=== PATIENT | male | born 1965 | race Caucasian/White ===

== ENCOUNTER → 2018-05-21 13:08 | Outpatient (CLI) | payer BC, SELFPAY | PROVIDERS: PCP Family Medicine; Visit Provider Family Medicine | DX: G47.33 Obstructive sleep apnea (adult) (pediatric) (principal); R06.83 Snoring; G47.10 Hypersomnia, unspecified; I10 Essential (primary) hypertension | CPT/HCPCS: 95806 ==

== ENCOUNTER → 2019-01-28 11:18 | Outpatient (CLI) | payer BC, SELFPAY ==
--- NOTE | 2019-01-28 11:22 | XR_ITS ---
XR chest 2V HISTORY: ITS.REASON: RALES 1/3 WAY UP CHEST LT SIDE ORDERING PHYSICIAN: Kierra Santiago APRN PATIENT AGE: 53 years COMPARISON: None FINDINGS: The heart size is unremarkable. There is increased density along the left hilar region with convex nodular configuration of the left hilum. There is increased density adjacent to the aortic arch on the left as well. Hilar mass or aneurysm is considered. Recommend chest CT with contrast for further evaluation. No lobar consolidation or collapse is evident. No acute bony findings. IMPRESSION: Left-sided hilar and mediastinal prominence which may be due to aortic aneurysm or mass. Suggest CT of the chest with contrast for further evaluation
== END ==
PROVIDERS: PCP Family Medicine; Visit Provider Nurse Practitioner
DX: R09.89 Other specified symptoms and signs involving the circulatory and respiratory systems (principal)
CPT/HCPCS: 71046

== ENCOUNTER → 2019-01-31 10:49 | Outpatient (CLI) | payer BC, SELFPAY ==
--- NOTE | 2019-01-31 10:53 | US_ITS ---
US soft tissue head and neck CLINICAL INDICATION: Palpable mass left supraclavicular region ITS.REASON: LT CERVICAL LYMPHADENOPATHY ORDERING PHYSICIAN: Donato Tenorio MD PATIENT AGE: 53 years Comparison: None FINDINGS: General survey is performed of the neck. There is a lobular area decrease echogenicity in the left supraclavicular region. His measures approximately 4 x 2.3 cm and is consistent with adenopathy. The submandibular glands and parotid glands have an unremarkable appearance. IMPRESSION: Left supraclavicular adenopathy
--- NOTE | 2019-01-31 10:54 | CT_ITS ---
CT chest w con HISTORY: Abnormal breath sounds, abnormal chest x-ray, hilar mass ITS.REASON: ABNORMAL CXR ORDERING PHYSICIAN: Donato Tenorio MD PATIENT AGE: 53 years COMPARISON: 01/28/2019 TECHNIQUE: Axial images obtained following the administration of 75 mL of Optiray 350 . Sagittal, and coronal reformatted images are also generated and reviewed. All CT scans at the facility use one or more dose reduction, viz: automated exposure control, ma/kV adjustment per patient size (including targeted exams where dose is matched to indication, i.e. head), or iterative reconstruction technique. FINDINGS: Measuring 4 x 2.6 cm consistent with adenopathy. Lobular soft tissue mass is present in the anterior mediastinum on the left measuring up to 6.7 cm cephalad to caudad 4.4 cm transverse and 6.6 cm AP consistent with adenopathy. There are 2 nodular densities in the left upper lobe anteriorly which appears separate from the mediastinal mass. In conjunction these measure 3 x 1 cm. There are centrilobular emphysematous changes with evidence of old granulomatous disease. No effusions or infiltrates are evident. No acute bony anomalies. Upper abdominal images show several isodense lesions of the liver. The largest is at the falciform ligament region measuring approximately 15 mm. This could be due to small cysts. The adrenal glands are unremarkable. No acute bony findings are evident. There is decreased attenuation within the left aspect of the T8 vertebral body and may be due to a hemangioma. IMPRESSION: 1. Large left anterior mediastinal mass as described above with an adjacent 3 x 1 cm left upper lobe nodule versus 2 combined nodules 2. Left supraclavicular adenopathy. Lymphoma or metastatic disease is considered. The left upper lobe nodular opacity. Also represent a primary lung neoplasm such as small cell carcinoma with adenopathy to the mediastinum and supraclavicular area. Ultrasound-guided core biopsy/fine-needle aspiration could be performed of the supraclavicular adenopathy if clinically desired. 3. Centrilobular emphysema,. 4. Several isodense lesions of liver which may be due to cysts.
== END ==
PROVIDERS: PCP Family Medicine; Visit Provider Family Medicine
DX: R59.0 Localized enlarged lymph nodes (principal); R93.89 Abnormal findings on diagnostic imaging of other specified body structures
CPT/HCPCS: 71260; 76536; Q9967

== ENCOUNTER 2019-02-08 12:27 | Inpatient (IN) ==
[2019-02-08 13:57] LABS: Albumin Level 1.9 gm/dL (3.4-5.0); Albumin/Globulin Ratio 0.4 (1.1-1.8); Anion Gap 16.2 mEq/L (5-15); Bilirubin,Total 0.6 mg/dL (0.2-1.0); Calcium 8.5 mg/dL (8.5-10.1); Globulin 5.1 gm/dl (1.3-3.2); Potassium 4.2 mmoL/L (3.5-5.1)
[2019-02-08 14:59] LABS: Basophils # 0.1 K/mm3 (0-0.2); Basophils % 0.4 % (0.1-2.0); Eosinophils # 0.2 K/mm3 (0.0-0.4); Eosinophils % 1.2 % (0.1-12.0); Hematocrit 37.7 % (42.0-52.0); Lymphocytes # 2.6 K/mm3 (0.7-4.5); Mean Corpuscular HGB Conc 31.7 g/dL (31.8-35.4); Mean Corpuscular Hemoglobin 26.9 pg (27.0-31.2); Mean Corpuscular Volume 84.9 fl (80-94); Mean Platelet Volume 7.7 fl (7.4-10.4); Monocytes # 0.7 K/mm3 (0.1-1.0); Monocytes % 4.1 % (1.7-9.3); Neutrophils # 12.5 K/mm3 (1.8-7.8); Neutrophils % 78.3 % (37.0-80.0); Platelet Count 461 K/mm3 (142-424); Red Blood Count 4.44 M/mm3 (4.60-6.20); Red Cell Distribution Width 14.8 % (11.5-17.5); White Blood Count 15.9 K/mm3 (4.8-10.8)
--- NOTE | 2019-02-08 15:09 | Pharmacy Consult Notes ---
[facility] Pharmacy VTE Monitoring - Patient Demographics Admission date: 02/08/19 Report Date: 02/08/19 Time: 15:09 Allergies/Adverse Reactions: Patient Allergies No Known Allergies Allergy (Unverified 09/01/17 14:23) Height: 1.85 m Weight: 98.118 kg - VTE Risk Labs: VTE Related Lab Results Hgb 12.0 g/dL (14.1-18.0) L 02/08/19 13:20 Hct 37.7 % (42.0-52.0) L 02/08/19 13:20 Plt Count 461 K/mm3 (142-424) H 02/08/19 13:20 BUN 14 mg/dL (7-18) 02/08/19 13:20 Creatinine 1.14 mg/dL (0.70-1.30) 02/08/19 13:20 Estimated Creat Clear 103 mL/min (50-200) 02/08/19 13:20 VTE Score: 3 VTE Risk Level: Low Risk - Prophylaxis VTE Prophylaxis Ordered?: Yes Types of VTE Prophylaxis: TEDS Knee High Location of Applied Device: Bilateral Lower Extremeties - VTE Diagnosis Confirmed Treatment or plan recommended: Continue Current Treatment
--- NOTE | 2019-02-08 17:26 | Progress Note ---
Internal Medicine - PN: Subj *Date: 02/08/19 *Time: 17:22 Interval history: Patient admitted from the office today with cough, fever and chills, tachycardia and shortness of breath. Exam Vital signs and Labs for Last 24 Hours: Temp Pulse Resp BP Pulse Ox 99.4 F 101 H 18 98/60 L 95 02/08/19 16:00 02/08/19 16:00 02/08/19 16:00 02/08/19 16:00 02/08/19 16:00 Laboratory Results - last 24 hr 02/08/19 13:20: WBC 15.9 H, RBC 4.44 L, Hgb 12.0 L, Hct 37.7 L, MCV 84.9, MCH 26.9 L, MCHC 31.7 L, RDW 14.8, Plt Count 461 H, MPV 7.7, Neut % (Auto) 78.3, Lymph % (Auto) 16.0, [place] % (Auto) 4.1, Eos % (Auto) 1.2, Baso % (Auto) 0.4, Neut # (Auto) 12.5 H, Lymph # (Auto) 2.6, [place] # (Auto) 0.7, Eos # (Auto) 0.2, Baso # (Auto) 0.1 02/08/19 13:20: Sodium 133 L, Potassium 4.2, Chloride 96 L, Carbon Dioxide 25, Anion Gap 16.2 H, BUN 14, Creatinine 1.14, Estimated Creat Clear 103, Estimated GFR 67, Est GFR ( Amer) 81, Glucose 88, Calcium 8.5, Total Bilirubin 0.6, AST 26, ALT 42, Alkaline Phosphatase 88, Total Protein 7.0, Albumin 1.9 L, Globulin 5.1 H, Albumin/Globulin Ratio 0.4 L I & O for Last 24 hours: Intake & Output 02/05/19 02/06/19 02/07/19 02/08/19 23:59 23:59 23:59 23:59 Weight 216 lb 5 oz Radiology Reports for the Last 24 Hours: CXR shows an unchanged mediastinal and left hilar mass and a LLL consolidation - Constitutional no acute distress - *Routine HEENT Exam Head: Present: normocephalic Eye: Present: EOMI ENT: Present: mucous membranes moist - *Routine Neck Exam Present: supple. Absent: lymphadenopathy - Routine Chest/Breast/Axilla Exam Comments: left supraclavicular mass - *Routine Respiratory Exam Present: decreased breath sounds (rare bibasilar crackles) - *Routine Cardiovascular Exam Present: RRR - *Routine Abdominal Exam Present: soft, normoactive bowel sounds. Absent: tenderness - *Routine Extremities Exam Absent: cyanosis, clubbing, edema - *Routine Skin Exam Present: warm. Absent: rash - *Routine Neurological Exam Present: alert, oriented X3 Assessment and Plan (1) LLL pneumonia Current visit: Yes Status: Acute Category: Medical Code(s): J18.1 - Lobar pneumonia, unspecified organism (2) Leukocytosis Current visit: Yes Status: Acute Category: Medical Code(s): D72.829 - Elevated white blood cell count, unspecified (3) HTN (hypertension) Current visit: Yes Status: Acute Category: Medical Code(s): I10 - Essential (primary) hypertension (4) Mediastinal mass Current visit: Yes Status: Acute Category: Medical Code(s): J98.59 - Other diseases of mediastinum, not elsewhere classified (5) Supraclavicular mass Current visit: Yes Status: Acute Category: Medical Code(s): R22.2 - Lo calized swelling, mass and lump, trunk (6) SIRS (systemic inflammatory response syndrome) Current visit: Yes Status: Acute Category: Medical Code(s): R65.10 - Systemic inflammatory response syndrome (SIRS) of non-infectious origin without acute organ dysfunction (7) Chest pain Current visit: Yes Status: Acute Category: Medical Code(s): R07.9 - Chest pain, unspecified - Assessment and plan all Dx Assessment and Plan for all problems:: Pt admitted for further evaluation and management of pneumonia and chest masses.
[2019-02-08 18:28] LABS: Eosinophils % 1 % (0-3); Hypochromasia 1+; Lymphocytes % 16 % (10-50); Monocytes % 3 % (2-9); Neutrophils % 80 % (42-76); Total Cells Counted 100
--- NOTE | 2019-02-08 18:59 | History & Physical Report ---
*Admission Date: 02/08/19 <JalenAmna 02/08/19 19:00> *Chief complaint: Shortness of breath <JalenAmna 02/08/19 19:13> *History of present illness: Mr. Mcgarry is a 53-year-old white male with a history of hypertension and tobacco use disorder who presented to the office of [facility] today with upper respiratory symptoms. He described a sore throat for 6 days with painful swallowing, cough, fever of 101- 102 with chills, left ear pain, shortness of breath with chest tightness and wheezing, headache, dizziness, body aches, and nausea. Patient previously had complaints of shortness of breath and had been on Z-Tenzin and Medrol Dosepak. He had a CT of the chest which revealed a left soft tissue mass in the anterior mediastinum and left upper lobe nodule as well as left supra clavicular adenopathy. He was scheduled for a biopsy of the mass. With worsening of his symptoms he presented to the office. He was evaluated by Dr. Villasenor. He was felt to be dehydrated. He continued with a fever. Blood pressure was low as well as a heart rate of 125. CBC revealed leukocytosis. He was thus admitted for further evaluation and treatment. At the time of this exam patient is lying comfortably in the bed and has been chilling. Chest x-ray revealed a pneumonia and a lung mass. He will have the biopsy in the morning. <Amna Rao 02/08/19 19:13> [facility] History Medical History: Reports:: Hypertension Denies:: Cancer, Diabetes Mellitus Type 1, Diabetes Mellitus Type 2, MRSA <Amna Rao 02/08/19 19:00> *Have you ever received a pneumonia vaccine?: No <Amna Rao 02/08/19 19:00> *Have you received a flu vaccine this season?: No <Amna Rao 02/08/19 19:00> Amputation: No <Amna Rao 02/08/19 19:00> Fractures: No <Amna Rao 02/08/19 19:00> Comment: Left shoulder dislocation with repair <Amna Rao 02/08/19 19:00> - *Social History Educational Level: Completed High School <Amna Roa 02/08/19 19:00> Smoking Status: Current every day smoker <Amna Rao 02/08/19 19:00> Tobacco Type: cigarettes <Amna Rao 02/08/19 19:00> # Packs/Day (cigarettes): 1 <Amna Rao 02/08/19 19:00> Alcohol Intake: never <Amna Rao 02/08/19 19:00> *Occupational Status:: disabled <JalenAmna 02/08/19 19:00> Housing: house <Amna Rao 02/08/19 19:00> Household Members: spouse <Amna Rao 02/08/19 19:00> *Travel in the last 8 weeks: None <Amna Roa 02/08/19 19:00> - Psychiatric History Expresses thoughts of harming self/others: None <Amna Rao 02/08/19 19:00> Suicide Plan Description: No Plan <Amna Rao 02/08/19 19:00> Family Hx:: Cancer, Diabetes, Hypertension <Amna Rao 02/08/19 19:00> Review of Systems - Constitutional Reports body ache(s), Reports chills, Reports excessive sweating, Reports fever(s), Reports headache(s), Reports weakness <RaoAmna 02/08/19 19:13> - ENT Reports dizziness, Reports dry mouth, Reports difficulty swallowing, Reports ear pain, Reports facial pain, Reports headache(s), Reports sore throat, Reports dizziness <RaoAmna 02/08/19 19:13> - *Cardiovascular Reports chest pain, Reports excessive sweating, Reports shortness of breath, Denies generalized swelling, Denies irregular heart rhythm, Denies leg swelling <RaoAmna 02/08/19 19:13> - *Respiratory Reports chest congestion, Reports cough, Reports shortness of breath, Reports shortness of breath with activity, Denies excessive phlegm production, Denies coughing up blood <Rao,Amna 02/08/19 19:13> - *Gastrointestinal Reports nausea, Denies abdominal pain, Denies change in bowel habits, Denies heartburn, Denies vomiting blood, Denies black, tarry stools, Denies vomiting <Amna Rao - 02/08/19 19:13> - *Genitourinary Denies difficulty urinating <Amna Rao 02/08/19 19:13> - *Musculoskeletal Reports joint pain, Reports body aches <Amna Rao Marti 02/08/19 19:13> - *Neurologic Reports dizziness, Reports headache(s), Reports dizziness, Reports weakness, Denies seizure-like activity, Denies seizure-like activity <Amna Rao 02/08/19 19:13> Meds Home Medications Medication Instructions Recorded Confirmed Type Losartan Potassium 25 mg PO DAILY 02/08/19 02/08/19 History <Juan Villasenor 02/09/19 08:18> Allergies Allergy/AdvReac Type Severity Reaction Status Date / Time No Known Allergies Allergy Unverified 09/01/17 14:23 <Juan Villasenor Marti 02/09/19 08:18> Exam Vital signs and Labs for Last 24 Hours: Temp Pulse Resp BP Pulse Ox 99.3 F 88 18 97/67 L 94 L 02/09/19 07:39 02/09/19 07:39 02/09/19 07:39 02/09/19 07:39 02/09/19 07:39 Laboratory Results - last 24 hr 02/08/19 13:20: WBC 15.9 H, RBC 4.44 L, Hgb 12.0 L, Hct 37.7 L, MCV 84.9, MCH 26.9 L, MCHC 31.7 L, RDW 14.8, Plt Count 461 H, MPV 7.7, Neut % (Auto) 78.3, Lymph % (Auto) 16.0, [place] % (Auto) 4.1, Eos % (Auto) 1.2, Baso % (Auto) 0.4, Neut # (Auto) 12.5 H, Lymph # (Auto) 2.6, [place] # (Auto) 0.7, Eos # (Auto) 0.2, Baso # (Auto) 0.1, Total Counted 100, Neutrophils % (Manual) 80 H, Lymphocytes % (Manual) 16, Monocytes % (Manual) 3, Eosinophils % (Manual) 1, Platelet Estimate Slight increase, Hypochromasia 1+ 02/08/19 13:20: Sodium 133 L, Potassium 4.2, Chloride 96 L, Carbon Dioxide 25, Anion Gap 16.2 H, BUN 14, Creatinine 1.14, Estimated Creat Clear 103, Estimated GFR 67, Est GFR ( Amer) 81, Glucose 88, Calcium 8.5, Total Bilirubin 0.6, AST 26, ALT 42, Alkaline Phosphatase 88, Total Protein 7.0, Albumin 1.9 L, Globulin 5.1 H, Albumin/Globulin Ratio 0.4 L <Juan Villasenor - 02/09/19 08:18> Temp Pulse Resp BP Pulse Ox 99.4 F 101 H 18 98/60 L 95 02/08/19 16:00 02/08/19 16:00 02/08/19 16:00 02/08/19 16:00 02/08/19 16:00 Laboratory Results - last 24 hr 02/08/19 13:20: WBC 15.9 H, RBC 4.44 L, Hgb 12.0 L, Hct 37.7 L, MCV 84.9, MCH 26.9 L, MCHC 31.7 L, RDW 14.8, Plt Count 461 H, MPV 7.7, Neut % (Auto) 78.3, Lymph % (Auto) 16.0, [place] % (Auto) 4.1, Eos % (Auto) 1.2, Baso % (Auto) 0.4, Neut # (Auto) 12.5 H, Lymph # (Auto) 2.6, [place] # (Auto) 0.7, Eos # (Auto) 0.2, Baso # (Auto) 0.1, Total Counted 100, Neutrophils % (Manual) 80 H, Lymphocytes % (Manual) 16, Monocytes % (Manual) 3, Eosinophils % (Manual) 1, Platelet Estimate Slight increase, Hypochromasia 1+ 02/08/19 13:20: Sodium 133 L, Potassium 4.2, Chloride 96 L, Carbon Dioxide 25, Anion Gap 16.2 H, BUN 14, Creatinine 1.14, Estimated Creat Clear 103, Estimated GFR 67, Est GFR ( Amer) 81, Glucose 88, Calcium 8.5, Total Bilirubin 0.6, AST 26, ALT 42, Alkaline Phosphatase 88, Total Protein 7.0, Albumin 1.9 L, Globulin 5.1 H, Albumin/Globulin Ratio 0.4 L <Amna Rao 02/08/19 19:00> I & O for Last 24 hours: Intake & Output 02/06/19 02/07/19 02/08/19 02/09/19 23:59 23:59 23:59 23:59 Intake Total 1738 / 1738 2716 / 2716 Balance 1738 / 1738 2716 / 2716 Weight 216 lb 5 oz 216 lb 3 oz <Juan Villasenor - 02/09/19 08:18> Intake & Output 02/06/19 02/07/19 02/08/19 02/09/19 11:59 11:59 11:59 11:59 Intake Total 1738 / 1738 Balance 1738 / 1738 Weight 216 lb 5 oz <Amna Rao 02/08/19 19:00> Radiology Reports for the Last 24 Hours: 02/08/2019 chest x-ray IMPRESSION: No change in the mediastinal and left hilar mass with chronic interstitial changes. New opacity overlies the left lower lung zone could be due to an area of atelectasis <Amna Rao 02/08/19 19:13> - Constitutional no acute distress <Amna Rao 02/08/19 19:13> Comments: Awakened from sleep for exam <Amna Rao 02/08/19 19:13> - *Routine HEENT Exam Head: Present: normocephalic, atraumatic <Amna Rao 02/08/19 19:13> Eye: Present: PERRL. Absent: conjunctival icterus, scleral injection, conjunctivae pink <Amna Rao 02/08/19 19:13> ENT: Present: mucous membranes moist, oropharynx clear <Amna Rao 02/08/19 19:13> - *Routine Neck Exam Present: lymphadenopathy <Amna Rao 02/08/19 19:13> Comments: Left supraventricular adenopathy <Amna Rao 02/08/19 19:13> - *Routine Respiratory Exam Comments: Few crackles on the right <Amna Rao 02/08/19 19:13> - *Routine Cardiovascular Exam Present: RRR <Amna Rao 02/08/19 19:13> - *Routine Abdominal Exam Present: soft, normoactive bowel sounds. Absent: tenderness, distended <Amna Rao - 02/08/19 19:13> - *Routine Extremities Exam Present: calf tenderness (Bilaterally). Absent: edema <Amna Rao - 02/08/19 19:13> - *Routine Neurological Exam Present: alert, oriented X3 <Amna Rao - 02/08/19 19:13> Assessment and Plan (1) LLL pneumonia Current visit: Yes Status: Acute Category: Medical Code(s): J18.1 - Lobar pneumonia, unspecified organism (2) Leukocytosis Current visit: Yes Status: Acute Category: Medical Code(s): D72.829 - Elevated white blood cell count, unspecified (3) HTN (hypertension) Current visit: Yes Status: Acute Category: Medical Code(s): I10 - Essential (primary) hypertension (4) Mediastinal mass Current visit: Yes Status: Acute Category: Medical Code(s): J98.59 - Other diseases of mediastinum, not elsewhere classified (5) Supraclavicular mass Current visit: Yes Status: Acute Category: Medical Code(s): R22.2 - Localized swelling, mass and lump, trunk (6) SIRS (systemic inflammatory response syndrome) Current visit: Yes Status: Acute Category: Medical Code(s): R65.10 - Systemic inflammatory response syndrome (SIRS) of non-infectious origin without acute organ dysfunction (7) Chest pain Current visit: Yes Status: Acute Category: Medical Code(s): R07.9 - Chest pain, unspecified <Juan Villasenor - 02/09/19 08:18> (1) LLL pneumonia Current visit: Yes Status: Acute Category: Medical Code(s): J18.1 - Lobar pneumonia, unspecified organism (2) Leukocytosis Current visit: Yes Status: Acute Category: Medical Code(s): D72.829 - Elevated white blood cell count, unspecified (3) HTN (hypertension) Current visit: Yes Status: Acute Category: Medical Code(s): I10 - Essential (primary) hypertension (4) Mediastinal mass Current visit: Yes Status: Acute Category: Medical Code(s): J98.59 - Other diseases of mediastinum, not elsewhere classified (5) Supraclavicular mass Current visit: Yes Status: Acute Category: Medical Code(s): R22.2 - Localized swelling, mass and lump, trunk (6) SIRS (systemic inflammatory response syndrome) Current visit: Yes Status: Acute Category: Medical Code(s): R65.10 - Systemic inflammatory response syndrome (SIRS) of non-infectious origin without acute organ dysfunction (7) Chest pain Current visit: Yes Status: Acute Category: Medical Code(s): R07.9 - Chest pain, unspecified <Amna Rao - 02/08/19 19:13> - Assessment and plan all Dx Assessment and Plan for all problems:: Saw patient twice on day of admission, agree with above note. <Juan Villasenor - 02/09/19 08:18> Patient has been admitted to the acute care for further evaluation and treatment of chest mass and pneumonia. He has been started on antibiotics and IV fluids. <Amna Rao - 02/08/19 19:14>
--- NOTE | 2019-02-09 08:25 | Progress Note ---
<Amna Rao - Last Filed: 02/09/19 08:22> Internal Medicine - PN: Subj *Date: 02/09/19 *Time: 08:22 Interval history: Patient slept at intervals. He states he had a fever several times associated with chills and diaphoresis. Continues with a nonproductive cough and shortness of breath. Has had the upper chest pain for which she has the pain medicine. He has had no nausea and was able to retain clear liquids this morning. He is voiding without difficulty. He states that he feels the same as he did yesterday before the bolus of fluids. Exam Vital signs and Labs for Last 24 Hours: Temp Pulse Resp BP Pulse Ox 99.3 F 88 18 97/67 L 94 L 02/09/19 07:39 02/09/19 07:39 02/09/19 07:39 02/09/19 07:39 02/09/19 07:39 Laboratory Results - last 24 hr 02/08/19 13:20: WBC 15.9 H, RBC 4.44 L, Hgb 12.0 L, Hct 37.7 L, MCV 84.9, MCH 26.9 L, MCHC 31.7 L, RDW 14.8, Plt Count 461 H, MPV 7.7, Neut % (Auto) 78.3, Lymph % (Auto) 16.0, [place] % (Auto) 4.1, Eos % (Auto) 1.2, Baso % (Auto) 0.4, Neut # (Auto) 12.5 H, Lymph # (Auto) 2.6, [place] # (Auto) 0.7, Eos # (Auto) 0.2, Baso # (Auto) 0.1, Total Counted 100, Neutrophils % (Manual) 80 H, Lymphocytes % (Manual) 16, Monocytes % (Manual) 3, Eosinophils % (Manual) 1, Platelet Estimate Slight increase, Hypochromasia 1+ 02/08/19 13:20: Sodium 133 L, Potassium 4.2, Chloride 96 L, Carbon Dioxide 25, Anion Gap 16.2 H, BUN 14, Creatinine 1.14, Estimated Creat Clear 103, Estimated GFR 67, Est GFR ( Amer) 81, Glucose 88, Calcium 8.5, Total Bilirubin 0.6, AST 26, ALT 42, Alkaline Phosphatase 88, Total Protein 7.0, Albumin 1.9 L, Globulin 5.1 H, Albumin/Globulin Ratio 0.4 L I & O for Last 24 hours: Intake & Output 02/06/19 02/07/19 02/08/19 02/09/19 11:59 11:59 11:59 11:59 Intake Total 4454 / 4454 Balance 4454 / 4454 Weight 216 lb 3 oz - Constitutional no acute distress Comments: Awake and alert taking clear liquid diet - *Routine Respiratory Exam Comments: Crackles heard in the right base with scattered crackles on the left. - *Routine Cardiovascular Exam Present: RRR - *Routine Abdominal Exam Present: soft, normoactive bowel sounds. Absent: tenderness - *Routine Extremities Exam Absent: edema - *Routine Neurological Exam Present: alert, oriented X3 Assessment and Plan (1) LLL pneumonia Current visit: Yes Status: Acute Category: Medical Code(s): J18.1 - Lobar pneumonia, unspecified organism (2) Leukocytosis Current visit: Yes Status: Acute Category: Medical Code(s): D72.829 - Elevated white blood cell count, unspecified (3) HTN (hypertension) Current visit: Yes Status: Acute Category: Medical Code(s): I10 - Essential (primary) hypertension (4) Mediastinal mass Current visit: Yes Status: Acute Category: Medical Code(s): J98.59 - Other diseases of mediastinum, not elsewhere classified (5) Supraclavicular mass Current visit: Yes Status: Acute Category: Medical Code(s): R22.2 - Localized swelling, mass and lump, trunk (6) SIRS (systemic inflammatory response syndrome) Current visit: Yes Status: Acute Category: Medical Code(s): R65.10 - Systemic inflammatory response syndrome (SIRS) of non-infectious origin without acute organ dysfunction (7) Chest pain Current visit: Yes Status: Acute Category: Medical Code(s): R07.9 - Chest pain, unspecified - Assessment and plan all Dx Assessment and Plan for all problems:: Patient states he is having a biopsy at 11:00 of the mass in the supra ventricular area. Continue with fever and pain management, IV fluids and antibiotics. <Juan Villasenor - Last Filed: 02/09/19 09:14> Internal Medicine - PN: Subj *Date: 02/09/19 *Time: 09:14 Exam Vital signs and Labs for Last 24 Hours: Temp Pulse Resp BP Pulse Ox 99.3 F 88 18 97/67 L 94 L 02/09/19 07:39 02/09/19 07:39 02/09/19 07:39 02/09/19 07:39 02/09/19 07:39 Laboratory Results - last 24 hr 02/08/19 13:20: WBC 15.9 H, RBC 4.44 L, Hgb 12.0 L, Hct 37.7 L, MCV 84.9, MCH 26.9 L, MCHC 31.7 L, RDW 14.8, Plt Count 461 H, MPV 7.7, Neut % (Auto) 78.3, Lymph % (Auto) 16.0, [place] % (Auto) 4.1, Eos % (Auto) 1.2, Baso % (Auto) 0.4, Neut # (Auto) 12.5 H, Lymph # (Auto) 2.6, [place] # (Auto) 0.7, Eos # (Auto) 0.2, Baso # (Auto) 0.1, Total Counted 100, Neutrophils % (Manual) 80 H, Lymphocytes % (Manual) 16, Monocytes % (Manual) 3, Eosinophils % (Manual) 1, Platelet Estimate Slight increase, Hypochromasia 1+ 02/08/19 13:20: Sodium 133 L, Potassium 4.2, Chloride 96 L, Carbon Dioxide 25, Anion Gap 16.2 H, BUN 14, Creatinine 1.14, Estimated Creat Clear 103, Estimated GFR 67, Est GFR ( Amer) 81, Glucose 88, Calcium 8.5, Total Bilirubin 0.6, AST 26, ALT 42, Alkaline Phosphatase 88, Total Protein 7.0, Albumin 1.9 L, Globulin 5.1 H, Albumin/Globulin Ratio 0.4 L I & O for Last 24 hours: Intake & Output 02/06/19 02/07/19 02/08/19 02/09/19 23:59 23:59 23:59 23:59 Intake Total 5593 / 1730 5876 / 1 Balance 1737 / 1732715 / 2715 Weight 216 lb 5 oz 216 lb 3 oz Assessment and Plan (1) LLL pneumonia Current visit: Yes Status: Acute Category: Medical Code(s): J18.1 - Lobar pneumonia, unspecified organism (2) Leukocytosis Current visit: Yes Status: Acute Category: Medical Code(s): D72.829 - Elevated white blood cell count, unspecified (3) HTN (hypertension) Current visit: Yes Status: Acute Category: Medical Code(s): I10 - Essential (primary) hypertension (4) Mediastinal mass Current visit: Yes Status: Acute Category: Medical Code(s): J98.59 - Other diseases of mediastinum, not elsewhere classified (5) Supraclavicular mass Current visit: Yes Status: Acute Category: Medical Code(s): R22.2 - Localized swelling, mass and lump, trunk (6) SIRS (systemic inflammatory response syndrome) Current visit: Yes Status: Acute Category: Medical Code(s): R65.10 - Systemic inflammatory response syndrome (SIRS) of non-infectious origin without acute organ dysfunction (7) Chest pain Current visit: Yes Status: Acute Category: Medical Code(s): R07.9 - Chest pain, unspecified - Assessment and plan all Dx Assessment and Plan for all problems:: Saw patient, agree with above note.
[2019-02-10 07:09] LABS: Basophils % 0.4 % (0.1-2.0); Eosinophils # 0.5 K/mm3 (0.0-0.4); Eosinophils % 4.8 % (0.1-12.0); Hemoglobin 9.6 g/dL (14.1-18.0); Lymphocytes # 1.8 K/mm3 (0.7-4.5); Lymphocytes % 16.1 % (10-50); Mean Corpuscular Hemoglobin 26.3 pg (27.0-31.2); Mean Corpuscular Volume 82.2 fl (80-94); Mean Platelet Volume 6.4 fl (7.4-10.4); Monocytes # 0.5 K/mm3 (0.1-1.0); Monocytes % 4.9 % (1.7-9.3); Neutrophils # 8.1 K/mm3 (1.8-7.8); Neutrophils % 73.8 % (37.0-80.0); Platelet Count 431 K/mm3 (142-424); Red Blood Count 3.65 M/mm3 (4.60-6.20); Red Cell Distribution Width 14.2 % (11.5-17.5)
[2019-02-10 07:28] LABS: Calcium 7.9 mg/dL (8.5-10.1)
--- NOTE | 2019-02-10 08:28 | Progress Note ---
<Nieves Damon - Last Filed: 02/10/19 08:25> Internal Medicine - PN: Subj *Date: 02/10/19 *Time: 08:25 Interval history: Patient states he is feeling a little bit better this morning. His sats have been stable on room air. He states he has pain across his back but but denies any other pain. He states he slept off and on throughout the night and was able to eat breakfast this morning. He is still coughing but it is not productive. He has less shortness of breath at rest but still has some dyspnea with exertion. He is still having chills and ran a fever last night. Exam Vital signs and Labs for Last 24 Hours: Temp Pulse Resp BP Pulse Ox 98.4 F 107 H 18 116/67 95 02/10/19 08:00 02/10/19 08:00 02/10/19 08:00 02/10/19 08:00 02/10/19 08:00 Laboratory Results - last 24 hr 02/10/19 06:31: WBC 11.0 H D, RBC 3.65 L, Hgb 9.6 L, Hct 30.0 L, MCV 82.2, MCH 26.3 L, MCHC 32.0, RDW 14.2, Plt Count 431 H, MPV 6.4 L, Neut % (Auto) 73.8, Lymph % (Auto) 16.1, [place] % (Auto) 4.9, Eos % (Auto) 4.8, Baso % (Auto) 0.4, Neut # (Auto) 8.1 H, Lymph # (Auto) 1.8, [place] # (Auto) 0.5, Eos # (Auto) 0.5 H, Baso # (Auto) 0.0 02/10/19 06:31: Sodium 133 L, Potassium 4.0, Chloride 100, Carbon Dioxide 24, Anion Gap 13.0, BUN 9 D, Creatinine 0.90 D, Estimated Creat Clear 127, Estimated GFR 88, Est GFR ( Amer) 106 D, Glucose 94, Calcium 7.9 L I & O for Last 24 hours: Intake & Output 02/07/19 02/08/19 02/09/19 02/10/19 11:59 11:59 11:59 11:59 Intake Total 4454 / 4454 2837 / 2837 Balance 4454 / 4454 2837 / 2837 Weight 216 lb 3 oz 211 lb 5 oz - Constitutional no acute distress - *Routine Respiratory Exam Present: rales (faint bibasilar rales, otherwise CTA) - *Routine Cardiovascular Exam Present: RRR - *Routine Abdominal Exam Present: soft, normoactive bowel sounds. Absent: tenderness - *Routine Extremities Exam Absent: cyanosis, clubbing, edema Assessment and Plan (1) LLL pneumonia Current visit: Yes Status: Acute Category: Medical Code(s): J18.1 - Lobar pneumonia, unspecified organism (2) Leukocytosis Current visit: Yes Status: Acute Category: Medical Code(s): D72.829 - Elevated white blood cell count, unspecified (3) HTN (hypertension) Current visit: Yes Status: Acute Category: Medical Code(s): I10 - Essential (primary) hypertension (4) Mediastinal mass Current visit: Yes Status: Acute Category: Medical Code(s): J98.59 - Other diseases of mediastinum, not elsewhere classified (5) Supraclavicular mass Current visit: Yes Status: Acute Category: Medical Code(s): R22.2 - Localized swelling, mass and lump, trunk (6) SIRS (systemic inflammatory response syndrome) Current visit: Yes Status: Acute Category: Medical Code(s): R65.10 - Systemic inflammatory response syndrome (SIRS) of non-infectious origin without acute organ dysfunction (7) Chest pain Current visit: Yes Status: Acute Category: Medical Code(s): R07.9 - Chest pain, unspecified (8) Anemia Current visit: Yes Status: Acute Category: Medical Code(s): D64.9 - Anemia, unspecified - Assessment and plan all Dx Assessment and Plan for all problems:: We will continue current care and await pathology report. We will get another chest x-ray today and continue to monitor his H&H as it is decreasing. <Juan Villasenor - Last Filed: 02/10/19 08:31> Internal Medicine - PN: Subj *Date: 02/10/19 *Time: 08:30 Exam Vital signs and Labs for Last 24 Hours: Temp Pulse Resp BP Pulse Ox 98.4 F 107 H 18 116/67 95 02/10/19 08:00 02/10/19 08:00 02/10/19 08:00 02/10/19 08:00 02/10/19 08:00 Laboratory Results - last 24 hr 02/10/19 06:31: WBC 11.0 H D, RBC 3.65 L, Hgb 9.6 L, Hct 30.0 L, MCV 82.2, MCH 26.3 L, MCHC 32.0, RDW 14.2, Plt Count 431 H, MPV 6.4 L, Neut % (Auto) 73.8, Lymph % (Auto) 16.1, [place] % (Auto) 4.9, Eos % (Auto) 4.8, Baso % (Auto) 0.4, Neut # (Auto) 8.1 H, Lymph # (Auto) 1.8, [place] # (Auto) 0.5, Eos # (Auto) 0.5 H, Baso # (Auto) 0.0 02/10/19 06:31: Sodium 133 L, Potassium 4.0, Chloride 100, Carbon Dioxide 24, Anion Gap 13.0, BUN 9 D, Creatinine 0.90 D, Estimated Creat Clear 127, Estimated GFR 88, Est GFR ( Amer) 106 D, Glucose 94, Calcium 7.9 L Vital Signs - 24 hr 02/09/19 15:14 02/09/19 15:31 02/09/19 15:53 Temperature 101.5 F H Pulse Rate [Right Brachial] 88 Pulse Rate [Right Radial] 107 H Respiratory Rate 18 18 16 Blood Pressure [Right Arm] 106/66 L 02 Sat by Pulse Oximetry 94 L 02/09/19 20:02 02/09/19 23:57 02/10/19 04:00 Temperature 99.3 F 102.3 F H 99.2 F Pulse Rate [Right Brachial] Pulse Rate [Right Radial] 100 H 103 H 95 H Respiratory Rate 18 18 16 Blood Pressure [Right Arm] 105/59 L 110/65 106/71 L 02 Sat by Pulse Oximetry 97 96 96 02/10/19 08:00 Temperature 98.4 F Pulse Rate [Right Brachial] Pulse Rate [Right Radial] 107 H Respiratory Rate 18 Blood Pressure [Right Arm] 116/67 02 Sat by Pulse Oximetry 95 I & O for Last 24 hours: Intake & Output 02/07/19 02/08/19 02/09/19 02/10/19 23:59 23:59 23:59 23:59 Intake Total 1738 / 1738 4433 / 4433 1120 / 1120 Balance 1738 / 1738 4433 / 4433 1120 / 1120 Weight 216 lb 5 oz 216 lb 3 oz 211 lb 5 oz Assessment and Plan (1) LLL pneumonia Current visit: Yes Status: Acute Category: Medical Code(s): J18.1 - Lobar pneumonia, unspecified organism (2) Leukocytosis Current visit: Yes Status: Acute Category: Medical Code(s): D72.829 - Elevated white blood cell count, unspecified (3) HTN (hypertension) Current visit: Yes Status: Acute Category: Medical Code(s): I10 - Essential (primary) hypertension (4) Mediastinal mass Current visit: Yes Status: Acute Category: Medical Code(s): J98.59 - Other diseases of mediastinum, not elsewhere classified (5) Supraclavicular mass Current visit: Yes Status: Acute Category: Medical Code(s): R22.2 - Localized swelling, mass and lump, trunk (6) SIRS (systemic inflammatory response syndrome) Current visit: Yes Status: Acute Category: Medical Code(s): R65.10 - Systemic inflammatory response syndrome (SIRS) of non-infectious origin without acute organ dysfunction (7) Chest pain Current visit: Yes Status: Acute Category: Medical Code(s): R07.9 - Chest pain, unspecified (8) Anemia Current visit: Yes Status: Acute Category: Medical Code(s): D64.9 - Anemia, unspecified - Assessment and plan all Dx Assessment and Plan for all problems:: Saw patient, he was febrile overnight, recheck CXR, await cultures and pathology report.
[2019-02-11 07:24] LABS: Basophils % 0.3 % (0.1-2.0); Eosinophils # 0.7 K/mm3 (0.0-0.4); Eosinophils % 6.8 % (0.1-12.0); Hematocrit 30.4 % (42.0-52.0); Hemoglobin 9.7 g/dL (14.1-18.0); Lymphocytes # 1.7 K/mm3 (0.7-4.5); Lymphocytes % 17.4 % (10-50); Mean Corpuscular Hemoglobin 26.5 pg (27.0-31.2); Mean Corpuscular Volume 82.6 fl (80-94); Mean Platelet Volume 6.3 fl (7.4-10.4); Monocytes # 0.4 K/mm3 (0.1-1.0); Monocytes % 3.5 % (1.7-9.3); Neutrophils # 7.1 K/mm3 (1.8-7.8); Neutrophils % 71.8 % (37.0-80.0); Red Blood Count 3.68 M/mm3 (4.60-6.20); Red Cell Distribution Width 14.3 % (11.5-17.5); White Blood Count 9.9 K/mm3 (4.8-10.8)
[2019-02-11 07:31] LABS: Anion Gap 12.5 mEq/L (5-15); Potassium 4.5 mmoL/L (3.5-5.1)
[2019-02-11 08:16] LABS: Platelet Count 517 K/mm3 (142-424)
--- NOTE | 2019-02-11 08:25 | Progress Note ---
<Nieves Damon - Last Filed: 02/11/19 08:22> Internal Medicine - PN: Subj *Date: 02/11/19 *Time: 08:22 Interval history: Patient states he is feeling better this morning. He has had only a low-grade fever at around 11 PM yesterday. He slept a little bit better last night and was able to eat this morning. He still has some pain across his back and some minimal shortness of breath. Exam Vital signs and Labs for Last 24 Hours: Temp Pulse Resp BP Pulse Ox 98.9 F 100 H 18 96/70 L 97 02/11/19 04:00 02/11/19 04:00 02/11/19 04:00 02/11/19 04:00 02/11/19 04:00 Laboratory Results - last 24 hr 02/11/19 06:55: WBC 9.9, RBC 3.68 L, Hgb 9.7 L, Hct 30.4 L, MCV 82.6, MCH 26.5 L , MCHC 32.0, RDW 14.3, Plt Count 517 H, MPV 6.3 L, Neut % (Auto) 71.8, Lymph % (Auto) 17.4, [place] % (Auto) 3.5, Eos % (Auto) 6.8, Baso % (Auto) 0.3, Neut # (Auto) 7.1, Lymph # (Auto) 1.7, [place] # (Auto) 0.4, Eos # (Auto) 0.7 H, Baso # (Auto) 0.0 02/11/19 06:55: Sodium 136, Potassium 4.5, Chloride 102, Carbon Dioxide 26, Anion Gap 12.5, BUN 9, Creatinine 0.82, Estimated Creat Clear 142, Estimated GFR 98, Est GFR ( Amer) 118, Glucose 88, Calcium 8.0 L I & O for Last 24 hours: Intake & Output 02/08/19 02/09/19 02/10/19 02/11/19 11:59 11:59 11:59 11:59 Intake Total 4454 / 4454 2837 / 2837 720 / 720 Balance 4454 / 4454 2837 / 2837 720 / 720 Weight 216 lb 3 oz 211 lb 5 oz 215 lb Microbiology Reports for the Last 24 Hours: Microbiology 02/08/19 13:20 Blood - Not Otherwise Specified Blood Culture - Preliminary NO GROWTH AFTER 48 HOURS 02/08/19 13:20 Blood - Not Otherwise Specified Blood Culture - Preliminary NO GROWTH AFTER 48 HOURS Radiology Reports for the Last 24 Hours: CXR IMPRESSION: 1. No change left hilar mass. 2. Patchy density left lower lobe consistent with atelectasis or infiltrate - Constitutional no acute distress - *Routine Respiratory Exam Present: rales (faint in the left base). Absent: wheezes - *Routine Cardiovascular Exam Present: RRR - *Routine Abdominal Exam Present: soft, normoactive bowel sounds. Absent: tenderness - *Routine Extremities Exam Absent: cyanosis, clubbing, edema Assessment and Plan (1) LLL pneumonia Current visit: Yes Status: Acute Category: Medical Code(s): J18.1 - Lobar pneumonia, unspecified organism (2) Leukocytosis Current visit: Yes Status: Acute Category: Medical Code(s): D72.829 - Elevated white blood cell count, unspecified (3) HTN (hypertension) Current visit: Yes Status: Acute Category: Medical Code(s): I10 - Essential (primary) hypertension (4) Mediastinal mass Current visit: Yes Status: Acute Category: Medical Code(s): J98.59 - Other diseases of mediastinum, not elsewhere classified (5) Supraclavicular mass Current visit: Yes Status: Acute Category: Medical Code(s): R22.2 - Localized swelling, mass and lump, trunk (6) SIRS (systemic inflammatory response syndrome) Current visit: Yes Status: Acute Category: Medical Code(s): R65.10 - Systemic inflammatory response syndrome (SIRS) of non-infectious origin without acute organ dysfunction (7) Chest pain Current visit: Yes Status: Acute Category: Medical Code(s): R07.9 - Chest pain, unspecified (8) Anemia Current visit: Yes Status: Acute Category: Medical Code(s): D64.9 - Anem ia, unspecified - Assessment and plan all Dx Assessment and Plan for all problems:: White blood cell count has normalized. H&H is stable but still slightly low. Chest x-ray shows left lower lobe atelectasis versus infiltrate. Still awaiting biopsy results. <Juan Villasenor - Last Filed: 02/11/19 09:03> Internal Medicine - PN: Subj *Date: 02/11/19 *Time: 09:01 Exam Vital signs and Labs for Last 24 Hours: Temp Pulse Resp BP Pulse Ox 99.5 F 103 H 18 120/77 95 02/11/19 08:00 02/11/19 08:00 02/11/19 08:00 02/11/19 08:00 02/11/19 08:00 Laboratory Results - last 24 hr 02/11/19 06:55: WBC 9.9, RBC 3.68 L, Hgb 9.7 L, Hct 30.4 L, MCV 82.6, MCH 26.5 L , MCHC 32.0, RDW 14.3, Plt Count 517 H, MPV 6.3 L, Neut % (Auto) 71.8, Lymph % (Auto) 17.4, [place] % (Auto) 3.5, Eos % (Auto) 6.8, Baso % (Auto) 0.3, Neut # (Auto) 7.1, Lymph # (Auto) 1.7, [place] # (Auto) 0.4, Eos # (Auto) 0.7 H, Baso # (Auto) 0.0 02/11/19 06:55: Sodium 136, Potassium 4.5, Chloride 102, Carbon Dioxide 26, A nion Gap 12.5, BUN 9, Creatinine 0.82, Estimated Creat Clear 142, Estimated GFR 98, Est GFR ( Amer) 118, Glucose 88, Calcium 8.0 L I & O for Last 24 hours: Intake & Output 02/08/19 02/09/19 02/10/19 02/11/19 23:59 23:59 23:59 23:59 Intake Total 1738 / 1738 4433 / 4433 1840 / 1840 240 / 240 Balance 1738 / 1738 4433 / 4433 1840 / 1840 240 / 240 Weight 216 lb 5 oz 216 lb 3 oz 211 lb 5 oz 215 lb Microbiology Reports for the Last 24 Hours: Microbiology 02/08/19 13:20 Blood - Not Otherwise Specified Blood Culture - Preliminary NO GROWTH AFTER 48 HOURS 02/08/19 13:20 Blood - Not Otherwise Specified Blood Culture - Preliminary NO GROWTH AFTER 48 HOURS Assessment and Plan (1) LLL pneumonia Current visit: Yes Status: Acute Category: Medical Code(s): J18.1 - Lobar pneumonia, unspecified organism (2) Leukocytosis Current visit: Yes Status: Acute Category: Medical Code(s): D72.829 - Elevated white blood cell count, unspecified (3) HTN (hypertension) Current visit: Yes Status: Acute Category: Medical Code(s): I10 - Essential (primary) hypertension (4) Mediastinal mass Current visit: Yes Status: Acute Category: Medical Code(s): J98.59 - Other diseases of mediastinum, not elsewhere classified (5) Supraclavicular mass Current visit: Yes Status: Acute Category: Medical Code(s): R22.2 - Localized swelling, mass and lump, trunk (6) SIRS (systemic inflammatory response syndrome) Current visit: Yes Status: Acute Category: Medical Code(s): R65.10 - Systemic inflammatory response syndrome (SIRS) of non-infectious origin without acute organ dysfunction (7) Chest pain Current visit: Yes Status: Acute Category: Medical Code(s): R07.9 - Chest pain, unspecified (8) Anemia Current visit: Yes Status: Acute Category: Medical Code(s): D64.9 - Anemia, unspecified - Assessment and plan all Dx Assessment and Plan for all problems:: Saw patient, agree with above note. 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
--- NOTE | 2019-02-11 09:13 | Progress Note ---
Internal Medicine - PN: Subj *Date: 02/11/19 *Time: 09:13 Exam Vital signs and Labs for Last 24 Hours: Temp Pulse Resp BP Pulse Ox 99.5 F 103 H 18 120/77 95 02/11/19 08:00 02/11/19 08:00 02/11/19 08:00 02/11/19 08:00 02/11/19 08:00 Laboratory Results - last 24 hr 02/11/19 06:55: WBC 9.9, RBC 3.68 L, Hgb 9.7 L, Hct 30.4 L, MCV 82.6, MCH 26.5 L , MCHC 32.0, RDW 14.3, Plt Count 517 H, MPV 6.3 L, Neut % (Auto) 71.8, Lymph % (Auto) 17.4, [place] % (Auto) 3.5, Eos % (Auto) 6.8, Baso % (Auto) 0.3, Neut # (Auto) 7.1, Lymph # (Auto) 1.7, [place] # (Auto) 0.4, Eos # (Auto) 0.7 H, Baso # (Auto) 0.0 02/11/19 06:55: Sodium 136, Potassium 4.5, Chloride 102, Carbon Dioxide 26, Anion Gap 12.5, BUN 9, Creatinine 0.82, Estimated Creat Clear 142, Estimated GFR 98, Est GFR ( Amer) 118, Glucose 88, Calcium 8.0 L I & O for Last 24 hours: Intake & Output 02/08/19 02/09/19 02/10/19 02/11/19 23:59 23:59 23:59 23:59 Intake Total 1738 / 1738 4433 / 4433 1840 / 1840 240 / 240 Balance 1738 / 1738 4433 / 4433 1840 / 1840 240 / 240 Weight 98.118 kg 98.061 kg 95.85 kg 97.522 kg Microbiology Reports for the Last 24 Hours: Microbiology 02/08/19 13:20 Blood - Not Otherwise Specified Blood Culture - Preliminary NO GROWTH AFTER 48 HOURS 02/08/19 13:20 Blood - Not Otherwise Specified Blood Culture - Preliminary NO GROWTH AFTER 48 HOURS Assessment and Plan (1) LLL pneumonia Current visit: Yes Status: Acute Category: Medical Code(s): J18.1 - Lobar pneumonia, unspecified organism (2) Leukocytosis Current visit: Yes Status: Acute Category: Medical Code(s): D72.829 - Elevated white blood cell count, unspecified (3) HTN (hypertension) Current visit: Yes Status: Acute Category: Medical Code(s): I10 - Essential (primary) hypertension (4) Mediastinal mass Current visit: Yes Status: Acute Category: Medical Code(s): J98.59 - Other diseases of mediastinum, not elsewhere classified (5) Supraclavicular mass Current visit: Yes Status: Acute Category: Medical Code(s): R22.2 - Localized swelling, mass and lump, trunk (6) SIRS (systemic inflammatory response syndrome) Current visit: Yes Status: Acute Category: Medical Code(s): R65.10 - Systemic inflammatory response syndrome (SIRS) of non-infectious origin without acute organ dysfunction (7) Chest pain Current visit: Yes Status: Acute Category: Medical Code(s): R07.9 - Chest pain, unspecified (8) Anemia Current visit: Yes Status: Acute Category: Medical Code(s): D64.9 - Anemia, unspecified The patient's infection will respond to the chosen ABx?: Yes Is the patient receiving the right drug, dose, and route?: Yes Could a more targeted ABx be ordered?: No
--- NOTE | 2019-02-12 17:08 | Discharge Summary ---
General - General Admission date:: 02/08/19 Discharge date: 02/11/19 HPI HPI: Mr. Mcgarry is a 53-year-old white male with a history of hypertension and tobacco use disorder who presented to the office of [facility] with upper respiratory symptoms. He described a sore throat for 6 days with painful swallowing, cough, fever of 101- 102 with chills, left ear pain, shortness of breath with chest tightness and wheezing, headache, dizziness, body aches, and nausea. Patient previously had complaints of shortness of breath and had been on Z-Tenzin and Medrol Dosepak. He had a CT of the chest which revealed a left soft tissue mass in the anterior mediastinum and a left upper lobe nodule as well as left supraclavicular adenopathy. He was scheduled for a biopsy of the mass. With worsening of his symptoms he presented to the office. He was evaluated by Dr. Villasenor in the office at which time he was felt to be dehydrated. He continued with a fever. Blood pressure was and he had a heart rate of 125. CBC revealed leukocytosis. He was thus admitted for further evaluation and treatment. Hospital Course Hospital Course: Chest x-ray on admission did show pneumonia and a lung mass. White blood cell count was elevated at 15,900. He was started on antibiotics and received a bolus of IV fluids. IV fluids were continued. He continued to have a fever mostly at night along with chilling. He continued with a nonproductive cough. His shortness of breath did not improve. He had upper chest wall pain as well as pain across his back for which he was treated with as needed pain medicine. On 02/09 he had a needle guided ultrasound biopsy of the left supraclavicular mass. Preliminary path report at time of discharge was consistent with poorly differentiated carcinoma. Patient gradually began to feel better with fewer chills and fever. Pain did improve as did his shortness of breath. He began to eat better as well. Blood cultures were negative at 48 hours. White blood cell count normalized and hemoglobin was 9.7 on day of discharge. On 02/11 he was stable to be discharged home on antibiotics with follow-up with Dr. Villasenor on 02/16/2019. Final path report was pending at time of discharge. Objective Vital signs: Temp Pulse Resp BP Pulse Ox 99.4 F 113 H 17 109/79 L 95 05/31/19 11:39 02/11/19 11:39 02/11/19 11:39 02/11/19 11:39 02/11/19 11:39 Narrative: Exam Vital signs and Labs for Last 24 Hours: Temp Pulse Resp BP Pulse Ox 98.9 F 100 H 18 96/70 L 97 02/11/19 04:00 02/11/19 04:00 02/11/19 04:00 02/11/19 04:00 02/11/19 04:00 Laboratory Results - last 24 hr 02/11/19 06:55: WBC 9.9, RBC 3.68 L, Hgb 9.7 L, Hct 30.4 L, MCV 82.6, MCH 26.5 L , MCHC 32.0, RDW 14.3, Plt Count 517 H, MPV 6.3 L, Neut % (Auto) 71.8, Lymph % (Auto) 17.4, [place] % (Auto) 3.5, Eos % (Auto) 6.8, Baso % (Auto) 0.3, Neut # (Auto) 7.1, Lymph # (Auto) 1.7, [place] # (Auto) 0.4, Eos # (Auto) 0.7 H, Baso # (Auto) 0.0 02/11/19 06:55: Sodium 136, Potassium 4.5, Chloride 102, Carbon Dioxide 26, Anion Gap 12.5, BUN 9, Creatinine 0.82, Estimated Creat Clear 142, Estimated GFR 98, Est GFR ( Amer) 118, Glucose 88, Calcium 8.0 L I & O for Last 24 hours: Intake & Output 02/08/19 02/09/19 02/10/19 02/11/19 11:59 11:59 11:59 11:59 Intake Total 4454 / 4454 2837 / 2837 720 / 720 Balance 4454 / 4454 2837 / 2837 720 / 720 Weight 216 lb 3 oz 211 lb 5 oz 215 lb Microbiology Reports for the Last 24 Hours: Microbiology 02/08/19 13:20 Blood - Not Otherwise Specified Blood Culture - Preliminary NO GROWTH AFTER 48 HOURS 02/08/19 13:20 Blood - Not Otherwise Specified Blood Culture - Preliminary NO GROWTH AFTER 48 HOURS Radiology Reports for the Last 24 Hours: CXR IMPRESSION: 1. No change left hilar mass. 2. Patchy density left lower lobe consistent with atelectasis or infiltrate - Constitutional no acute distress - *Routine Respiratory Exam Present: rales (faint in the left base). Absent: wheezes - *Routine Cardiovascular Exam Present: RRR - *Routine Abdominal Exam Present: soft, normoactive bowel sounds. Absent: tenderness - *Routine Extremities Exam Absent: cyanosis, clubbing, edema Results Completed studies during hospitalization [Text1]: 02/08/2019 chest x-ray IMPRESSION: No change in the mediastinal and left hilar mass with chronic interstitial changes. New opacity overlies the left lower lung zone could be due to an area of atelectasis 02/10/2019 repeat chest x-ray IMPRESSION: 1. No change left hilar mass. 2. Patchy density left lower lobe consistent with atelectasis or infiltrate Laboratory Tests 02/08/19 02/08/19 02/10/19 13:20 13:20 06:31 WBC 15.9 H 11.0 H D RBC 4.44 L 3.65 L Hgb 12.0 L 9.6 L Hct 37.7 L 30.0 L MCV 84.9 MCH 26.9 L MCHC 31.7 L Plt Count 461 H 431 H Neut % (Auto) 78.3 Lymph % (Auto) 16.0 Neutrophils % (Manual) 80 H Sodium 133 L Potassium 4.2 Chloride 96 L Carbon Dioxide 25 Anion Gap 16.2 H BUN 14 Creatinine Glucose 88 Calcium 8.5 Total Bilirubin 0.6 AST 26 ALT 42 Alkaline Phosphatase 88 Total Protein 7.0 Albumin 1.9 L Globulin 5.1 H 02/10/19 02/11/19 06:31 06:55 WBC 9.9 RBC 3.68 L Hgb 9.7 L Hct 30.4 L MCV MCH MCHC Plt Count 517 H Neut % (Auto) Lymph % (Auto) Neutrophils % (Manual) Sodium 133 L Potassium 4.0 Chloride Carbon Dioxide Anion Gap BUN Creatinine 0.90 D Glucose Calcium Total Bilirubin AST ALT Alkaline Phosphatase Total Protein Albumin Globulin Labs on day of discharge: Preliminary micro results at discharge 02/08/19 13:20 Blood Culture - Preliminary Blood - Not Otherwise Specified NO GROWTH AFTER 48 HOURS 02/08/19 13:20 Blood Culture - Preliminary Blood - Not Otherwise Specified NO GROWTH AFTER 48 HOURS DS: Diagnosis - Discharge Diagnosis (1) LLL pneumonia Status: Acute (2) Leukocytosis Status: Acute (3) HTN (hypertension) Status: Acute (4) Mediastinal mass Status: Acute (5) Supraclavicular mass Status: Acute (6) SIRS (systemic inflammatory response syndrome) Status: Acute (7) Chest pain Status: Acute (8) Anemia Status: Acute Discharge Plan - Patient Discharge Instructions ACTIVITY: Continue current activity DIET: continue same diet Patient Instructions: Pneumococcal Vaccine, DI for Pneumonia -- Adult - Follow up Plan Follow up with: Juan Villasenor MD [Primary Care Provider] - 02/16/19 Disposition: Home, Self-Retirement Medications: Home Medications Medication Instructions Recorded Confirmed Type Losartan Potassium 25 mg PO DAILY 02/08/19 02/08/19 History Azithromycin [Zithromax 500mg Tab] 500 mg PO DAILY #5 tab 02/11/19 Rx Cefdinir [Omnicef 300mg Capsule] 300 mg PO BID #10 cap 02/11/19 Rx Tramadol HCl [Tramadol 50mg 50 mg PO Q6HP PRN 3 Days tab 02/11/19 Rx Tab] Prescriptions/Medication Reconciliation: New Tramadol HCl [Tramadol 50mg Tab] 50 mg PO Q6HP PRN 3 Days tab PRN Reason: Moderate Pain Azithromycin [Zithromax 500mg Tab] 500 mg PO DAILY #5 tab Cefdinir [Omnicef 300mg Capsule] 300 mg PO BID #10 cap Continued Losartan Potassium 25 mg PO DAILY
== END 2019-02-11 13:56 | disposition home or self-care (01) | DRG 194 ==
LOC: 2ND 12:44
PROVIDERS: ADMIT Family Medicine; ATTEND Family Medicine
CPT/HCPCS: 36415; 71020; 71046; 76942; 80048; 80053; 85007; 85025; 87040; J0456